=== PATIENT | female | born 1960 | race Caucasian/White ===

== ENCOUNTER 2023-10-12 08:49 | Day surgery (SDC) | payer MEDICAID, OTHER ==
[2023-10-09 12:49] LABS: Basophils # (auto) 0.1 10 ^3/uL (0-0.2); Eosinophils # (auto) 0.2 10 ^3/uL (0-0.8); Eosinophils % (auto) 2.7 % (0.0-7.0); Hemoglobin 13.3 g/dL (12.2-16.2); Lymphocytes # (auto) 3.1 10 ^3/uL (0.4-5.4); Mean Corpuscular Hemoglobin 27.9 pg (28.0-32.0); Mean Corpuscular Hgb Conc. 32.4 g/dL (32.0-36.0); Monocytes # (auto) 0.8 10 ^3/uL (0-1.3); Monocytes % (auto) 8.3 % (0.0-12.0); Neutrophils # (auto) 4.9 10 ^3/uL (1.6-8.6); Red Blood Cells 4.76 10^6/uL (4.0-5.20); Red Cell Distribution Width 14.1 % (11.8-14.3); White Blood Cell 9.1 10^3/uL (4.4-10.8)
[2023-10-09 12:59] LABS: Chloride 108 mmol/L (98-107); Potassium 4.3 mmol/L (3.5-5.1); Sodium 140 mmol/L (136-145)
[2023-10-09 13:00] LABS: Anion Gap 2 (5-15); Calcium 9.2 mg/dL (8.5-10.1); Carbon Dioxide 30 mmol/L (20-30)
[2023-10-09 13:05] LABS: BUN/Creatinine Ratio 14.3 (10.0-20.0); Blood Urea Nitrogen 10 mg/dL (9-23); Glucose 125 mg/dL (74-106); INR 0.99 (0.9-1.15); Partial Thromboplastin Time 31.4 SEC (24.5-34.5); Prothrombin Time 10.4 sec (9.3-11.8)
[~2023-10-12] VITALS: Ht 149.9 cm; Wt 72.6 kg
[~2023-10-12 08:49] MED LIST: IODIXANOL 320MG/ML 100ML BTL IV ONE; IOHEXOL 350 MG/ML 100ML IJ ONE; LIDOCAINE 2%HCL (LOCAL ANESTH.) INJ 20ML MDV ONE
[2023-10-12] MEDS ORDERED: ATOR20TA PO (09:40)
[2023-10-12] MEDS ORDERED: LISI-275 PO (09:40)
[2023-10-12] MEDS ORDERED: PREG100C PO (09:40)
[2023-10-12] MEDS ORDERED: ALBU0.084 NEB (09:40)
[2023-10-12] MEDS ORDERED: SEMA2INJ3 SC (09:40)
[2023-10-12] MEDS ORDERED: METF-371 PO (09:40)
[2023-10-12] MEDS ORDERED: ALBU108A5 IN (09:40)
[2023-10-12] MEDS ORDERED: ASPI-543 PO (09:40)
[2023-10-12] MEDS ORDERED: GLIP5TAB12 PO (09:40)
[2023-10-12] MEDS ORDERED: HYDR-4069 PO (09:40)
[2023-10-12] MEDS ORDERED: ANGIOMAX 250 MG VIAL IV ONE (09:50)
[2023-10-12] MEDS ORDERED: fentaNYL CITRATE 100 MCG/2 ML VL ONE (09:51)
[2023-10-12] MEDS ORDERED: SODIUM CHL 0.9% 0 ML ONE (09:51)
[2023-10-12] MEDS ORDERED: VERAPAMIL 2.5MG/ML INJ 2ML VIAL IV ONE (09:51)
[2023-10-12] MEDS ORDERED: MIDAZOLAM HCL 2MG/2ML 2ml VIAL (1mg/ml) ONE (09:51)
[2023-10-12] MEDS ORDERED: HEPARIN SODIUM (PORCINE) 5000 UNITS/ML 1ML VIAL ONE (09:51)
[2023-10-12] MEDS ORDERED: [UNRECOGNIZED DRUG - CODE] XX (10:22)
== END 2023-10-12 13:05 | disposition home or self-care (01) ==
LOC: CATH 08:49
PROVIDERS: ATTEND Internal Medicine
DX: R94.39 Abnormal result of other cardiovascular function study (principal); I25.118 Atherosclerotic heart disease of native coronary artery with other forms of angina pectoris; I77.819 Aortic ectasia, unspecified site; I10 Essential (primary) hypertension; E78.00 Pure hypercholesterolemia, unspecified; J45.909 Unspecified asthma, uncomplicated; Z79.899 Other long term (current) drug therapy; Z90.49 Acquired absence of other specified parts of digestive tract; Z86.73 Personal history of transient ischemic attack (TIA), and cerebral infarction without residual deficits
CPT/HCPCS: 36415; 80048; 85025; 85610; 85730; 93458; C1769; C1894; J1644; J2250; J3010; Q9967; 99152

== ENCOUNTER 2024-12-20 08:21 | Emergency (ER) | payer MEDICAID, OTHER ==
[~2024-12-20] VITALS: Ht 144.8 cm; Wt 73.3 kg
[~2024-12-20 08:21] MED LIST changes: +ALBU0.084 NEB; +ALBU108A5 IN; +ASPI-543 PO; +ATOR20TA PO; +GLIP5TAB21 PO; +HYDR-4069 PO; -IODIXANOL 320MG/ML 100ML BTL IV ONE; -IOHEXOL 350 MG/ML 100ML IJ ONE; -LIDOCAINE 2%HCL (LOCAL ANESTH.) INJ 20ML MDV ONE; +LISI-275 PO; +METF-371 PO; +PREG100C PO; +SEMA2INJ3 SC; +[UNRECOGNIZED DRUG - CODE] XX
[2024-12-20 08:29] VITALS: BP 164/80; PULSE 97; RESP 18; TEMP 98.1; O2SAT 96
[2024-12-20 09:30] LABS: Basophils # (auto) 0.1 10 ^3/uL (0-0.2); Basophils % (auto) 0.5 % (0.0-2.0); Eosinophils # (auto) 0 10 ^3/uL (0-0.8); Hematocrit 40.6 % (36.0-46.0); Hemoglobin 13.6 g/dL (12.2-16.2); Lymphocytes % (auto) 9.4 % (10.0-50.0); Mean Corpuscular Hemoglobin 29.4 pg (28.0-32.0); Mean Corpuscular Hgb Conc. 33.5 g/dL (32.0-36.0); Monocytes # (auto) 0.1 10 ^3/uL (0-1.3); Monocytes % (auto) 1.2 % (0.0-12.0); Neutrophils # (auto) 9.5 10 ^3/uL (1.6-8.6); Neutrophils % (auto) 88.9 % (37.0-80.0); Platelet Count (auto) 231 10^3/uL (140-450); Red Blood Cells 4.62 10^6/uL (4.0-5.20); Red Cell Distribution Width 14.5 % (11.8-14.3); White Blood Cell 10.7 10^3/uL (4.4-10.8)
--- NOTE | 2024-12-20 09:37 | DVH ---
EXAM: XY CHEST PORTABLE Indication: sob Technique: Single frontal view of the chest was obtained Comparison: None FINDINGS: Lines and Tubes: None Lungs: No focal consolidation. Pleura: No effusion. No pneumothorax. Cardiomediastinal contours: Unremarkable Bones: No acute osseous abnormality. IMPRESSION: No acute cardiopulmonary disease.
--- NOTE | 2024-12-20 09:39 | ED.PDOC ---
SOB-HPI HPI Comments 64 year old female brought in by daughter presents to the ED with chief complaint of SOB and chest pain. Patient reports that she has been experiencing SOB with associated cough, chest pain, headache, nasal congestion, and body aches for the past few days. Daughter relays that the patient was taken to [place] yesterday, however, she signed out AMA due to waiting about 15 hours for treatment. Daughter states patient had a chest XR performed at [place] indicating fluid is present in her lungs. Patient denies any dizziness, fever, chills, N/V, abdominal pain, or hemoptysis. Chief Complaint: Shortness of Breath Time Seen by MD: 09:35 Primary Care Provider: UNK Reviewed notes: Nurses Notes, Medications, Allergies Information Source: Patient, Relative (Daughter) Mode of Arrival: Ambulatory Severity: Moderate Timing: Days Duration: Since onset Context: At Rest PE Risk Factors: None History of: Asthma Prehospital treatment: None Modifying Factors: Nothing Associated Signs and Symptoms: Cough, Nasal Congestion, Chest Pain Quality: Sharp Radiation: No Radiation Location: Substernal If cough with SOB: Non-Productive Past Medical History PAST MEDICAL HISTORY: Asthma Surgical History: Denies all surgeries MANAGER INTERN History: No Pertinent MANAGER INTERN History Family History Family History: Unknown Social History Smoker: Cigarettes Alcohol: Denies ETOH Use Drugs: Denies Drug Use Lives In: Home Constitutional: reports: others (Body aches); denies: chills, diaphoresis, fatigue, fever, malaise, sweats, weakness EENTM: reports: nose congestion; denies: blurred vision, double vision, ear bleeding, ear discharge, ear drainage, ear pain, ear ringing, eye pain, eye redness, hearing loss, mouth pain, mouth swelling, nasal discharge, nose bleeding, nose pain, photophobia, tearing, throat pain, throat swelling, voice changes, others Respiratory: reports: cough, shortness of breath; denies: hemoptysis, orthopnea, SOB at rest, SOB with excertion, stridor, wheezing, others Cardiovascular: reports: chest pain; denies: dizzy spells, diaphoresis, Dyspnea on exertion, edema, irregular heart beat, left arm pain, lightheadedness, palpitations, PND, syncope, others Gastrointestinal: denies: abdomen distended, abdominal pain, blood streaked bowels, constipated, diarrhea, dysphagia, difficulty swallowing, hematemesis, melena, nausea, poor appetite, poor fluid intake, rectal bleeding, rectal pain, vomiting, others Genitourinary: denies: abnormal vagina bleeding, burning, dyspareunia, dysuria, flank pain, frequency, hematuria, incontinence, pain, , vagina discharge, urgency, others Neurological: reports: headache; denies: dizziness, fainting, left sided numbness, left sided weakness, numbness, paresthesia, pre-existing deficit, right sided numbness, right sided weakness, seizure, speech problems, tingling, tremors, weakness, others Musculoskeletal: denies: back pain, gout, joint pain, joint swelling, muscle pain, muscle stiffness, neck pain, others Integumetry: denies: bruises, change in color, change in hair/nails, dryness, laceration, lesions, lumps, rash, wounds, others Allergic/Immunocompromised: denies: Difficulty Healing, Frequent Infections, Hives, Itching, others Hematologic/Lymphatic: denies: anemia, blood clots, easy bleeding, easy bruising, swollen glands, others Endocrine: denies: excessive hunger, excessive sweating, excessive thirst, excessive urination, flushing, intolerance to cold, intolerance to heat, unexplained weight gain, unexplained weight loss, others Psychiatric: denies: anxiety, bipolar disorder, depression, hopeless, panic disorder, schizophrenia, sleepless, suicidal, others All Other Systems: Reviewed and Negative Physical Exam General Appearance: Moderate Distress, Normal HEENT: Normal ENT Inspection, PERRL/EOMI Neck: Full Range of Motion, Non-Tender, Normal, Normal Inspection Respiratory: Chest Non-Tender, No Accessory Muscle Use, No Respiratory Distress, Wheezing Cardiovascular: No Edema, No JVD, No Murmur, No Gallop, Normal Peripheral Pulses, Regular Rate/Rhythm Breast Exam: Deferred Gastrointestinal: No Organomegaly, Non Tender, No Pulsatile Mass, Normal Bowel Sounds, Soft Genitalia: Deferred Pelvic: Deferred Rectal: Deferred Extremities: No calf tenderness, Normal capillary refill, Normal inspection, Normal range of motion, Non-tender, No pedal edema Musculoskeletal : Apperance: Normal Neurologic: Alert, fractionation supervisor II-XII nml as Tested, No Motor Deficits, Normal Affect, Normal Mood, No Sensory Deficits Cerebellar Function: Normal Reflexes: Normal Skin: Dry, Normal Color, Warm Peripheral Pulses: 3+ Radial (R), 3+ Radial (L) Lymphatic: No Adenopathy Was a procedure done? Was a procedure done?: No Differential Dx Differential Diagnosis: Anxiety, Asthma, Bronchitis, CHF, COPD, Pneumonia X-Ray, Labs, Meds, VS Vital Signs Date Time Temp Pulse Resp B/P (MAP) Pulse Ox O2 Delivery O2 Flow Rate FiO2 12/20/24 08:29 98.1 97 18 164/80 (108) 96 98.1 12/20/24 08:29 98.1 97 18 164/80 (108) 96 98.1 12/20/24 08:29 97 18 96 Room Air* 0 21 Lab Test 12/20/24 09:18 Range/Units White Blood Count 10.7 4.4-10.8 10^3/uL Red Blood Count 4.62 4.0-5.20 10^6/uL Hemoglobin 13.6 12.2-16.2 g/dL Hematocrit 40.6 36.0-46.0 % Mean Corpuscular Volume 88.0 80.0-100.0 fL Mean Corpuscular Hemoglobin 29.4 28.0-32.0 pg Mean Corpuscular Hemoglobin Concent 33.5 32.0-36.0 g/dL Red Cell Distribution Width 14.5 H 11.8-14.3 % Platelet Count 231 140-450 10^3/uL Mean Platelet Volume 8.0 6.9-10.8 fL Neutrophils (%) (Auto) 88.9 H 37.0-80.0 % Lymphocytes (%) (Auto) 9.4 L 10.0-50.0 % Monocytes (%) (Auto) 1.2 0.0-12.0 % Eosinophils (%) (Auto) 0.0 0.0-7.0 % Basophils (%) (Auto) 0.5 0.0-2.0 % Neutrophils # (Auto) 9.5 H 1.6-8.6 10 ^3/uL Lymphocytes # (Auto) 1.0 0.4-5.4 10 ^3/uL Monocytes # (Auto) 0.1 0-1.3 10 ^3/uL Eosinophils # (Auto) 0 0-0.8 10 ^3/uL Basophils # (Auto) 0.1 0-0.2 10 ^3/uL Nucleated Red Blood Cells 0.0 % B-Type Natriuretic Peptide 205.82 0-100 pg/mL Chest XR: FINDINGS: Lines and Tubes: None Lungs: No focal consolidation. Pleura: No effusion. No pneumothorax. Cardiomediastinal contours: Unremarkable Bones: No acute osseous abnormality. IMPRESSION: No acute cardiopulmonary disease. Patient alert. Complaining of shortness a breath. Chest x-ray reviewed does not show any acute process. Vitals stable. Chest x-ray lagging behind. BNP elevated. Possible pneumonitis. Possible pneumonia. WBC within normal limits. Cardiology consultation for full workup. Echocardiogram. Was given Lasix. Was given Rocephin. Was given azithromycin. Counseled patient on effects of smoking cigarettes for 15 minutes. Reviewed her history. Explained to the family. Continue cardiac monitoring. Time of 1ST Reevaluation: 10:35 Reevaluation 1ST: Unchanged Patient Education/Counseling: Diagnosis, Treatment Family Education/Counseling: No Family Present Additional Information Previous visit documents reviewed: 11/05/15 for neck pain The following tests were ordered, and results were reviewed by me: UA, BNP, CBC, Chest XR Additional Information was gathered from interviewing the following independent historians: Daughter I reviewed and agreed with the following test results read by other providers: Chest XR I discussed treatment and results with medical personnel and: Patient and daughter. Departure 1 Departure Time of Disposition: 11:07 Impression: Primary Impression: Pneumonitis Disposition: ADMITTED INPATIENT Admit to: Med Surg Condition: Guarded Critical Care Note Critical Care Time?: No Stability Stability form required: No Heart Score Heart Score: Heart Score Response (Comments) Value History N/A 0 EKG N/A 0 Age N/A 0 Risk Factors N/A 0 Troponin N/A 0 Total 0 I personally scribed for ERNESTINE BENAVIDEZ MD ([email or web address]) on 12/20/24 at 09:39. Electronically submitted by Joss Coronel ([email or web address]). I personally scribed for ERNESTINE BENAVIDEZ MD ([email or web address]) on 12/20/24 at 09:50. Electronically submitted by Joss Coronel ([email or web address]). ERNESTINE BENAVIDEZ MD Dec 20, 2024 09:39
[2024-12-20] MEDS ORDERED: AZITHROMYCIN 500MG/ 250ML 250 ML IV ONE (11:15)
[2024-12-20] MEDS ORDERED: cefTRIAXone 1GM/50ML D5W 50 ML IV ONE (11:15)
[2024-12-20 15:57] LABS: Alanine Aminotransferase 17 U/L (7-40); Alkaline Phosphatase 91 U/L (46-116); Anion Gap 5 (5-15); Aspartate Aminotransferase 19 U/L (13-40); BUN/Creatinine Ratio 21.9 (10.0-20.0); Blood Urea Nitrogen 16 mg/dL (9-23); Calcium 9.5 mg/dL (8.7-10.4); Carbon Dioxide 26 mmol/L (20-31); Potassium 4.5 mmol/L (3.5-5.1); Sodium 138 mmol/L (136-145); Total Protein 7.6 g/dL (5.7-8.2)
[2024-12-20 16:06] LABS: Albumin 4.9 g/dL (3.2-4.8); Bilirubin, Total 0.2 mg/dL (0.2-1.0); Chloride 107 mmol/L (98-107); Glucose 203 mg/dL (74-106)
[2024-12-21] MEDS ORDERED: HYDR-4072 PO (17:08)
[2024-12-21] MEDS ORDERED: PREG150C63 PO (17:08)
== END 2024-12-20 15:51 | disposition left against medical advice (07) ==
LOC: ER 08:21
DX: J98.4 Other disorders of lung (principal); F17.210 Nicotine dependence, cigarettes, uncomplicated; R51.9 Headache, unspecified; J45.909 Unspecified asthma, uncomplicated; R07.89 Other chest pain
CPT/HCPCS: 36415; 71045; 80053; 83880; 85025

== ENCOUNTER 2024-12-21 09:34 | Inpatient (IN) | payer MEDICAID ==
[~2024-12-21] VITALS: Ht 144.8 cm; Wt 73.7 kg
--- NOTE | 2024-12-21 10:10 | ED.PDOC ---
History of Present Illness HPI Comments 64F presents to the ER w/ prior Hx of Asthma which may be associated to the c/c of SOB. Pt reports that she has been having Cough, Wheezing, Runny Nose, CP and SOB for the past 3 weeks and went to [facility] yesterday and informed the pt that she has "liquid in the lungs" and that she is going to have to "stay in the hospital but be sitting because there are no more room in the ER" and since the pt didnt want to be sitting, she decided to leave AMA. SHx of . Social hx of tobacco use, but denies alcohol and substance use. Denies chills, fever, N/V/D, or no other associated symptom's, modifiers, recent injuries or sick contacts at this time. Chief Complaint: Shortness of Breath Time Seen by MD: 09:50 Primary Care Provider: UNK Reviewed Notes: Nurses Notes, Medications, Allergies Allergies: Coded Allergies: NO KNOWN ALLERGIES (Unverified , 11/05/15) Home Meds Reported Medications Budesonide (Budesonide Micronized) 1 Pow Pow, 1 POW XX DAILY for asthma, POW 10/12/23 Aspirin (Aspir-Low) 81 Mg Tab, 81 MG PO DAILY for cardiac 10/12/23 Metformin Hydrochloride (Metformin Hcl) 850 Mg Tab, 1 TAB PO BID for dm 10/12/23 Glipizide (Glipizide) 5 Mg Tab, 5 MG PO DAILY for dm 10/12/23 Albuterol Sulfate (Albuterol Sulfate) 0.083 % Neb, 1 VIAL NEB Q4HPRN PRN for SHORTNESS OF BREATH, VIAL 10/12/23 Albuterol Sulfate (Albuterol Sulfate Hfa) 108 Mcg/Act Aer, 108 MCG IN PRN for SHORTNESS OF BREATH, AER 10/12/23 Pregabalin (Lyrica) 100 Mg Cap, 1 CAP PO BID for neropathy 10/12/23 Semaglutide (Ozempic) 2 Mg/3 Ml Inj, 2 MG SC weekly for dm, INJ 10/12/23 Atorvastatin Calcium (Lipitor) 20 Mg Tab, 1 TAB PO DAILY for cholesterol 10/12/23 Lisinopril (Lisinopril) 5 Mg Tab, 5 MG PO DAILY for htn 10/12/23 Hydrocodone-Acetaminophen (Hydrocodone/Acetaminophen 7.5-325 mg) 1 Tab Tab, 1 TAB PO PRN for PAIN SCALE 1 THRU 6, TAB 10/12/23 Information Source: Patient Mode of Arrival: Ambulatory Severity: Moderate Timing: Weeks Duration: Since onset Prehospital treatment: None Past Medical History PAST MEDICAL HISTORY: Asthma Surgical History: CAR CLEANER History: No Pertinent CAR CLEANER History Family History Family History: Reviewed,noncontributory to illness, Unknown Social History Smoker: Cigarettes, Less Than 1 Pack/Day Alcohol: Denies ETOH Use Drugs: Denies Drug Use Lives In: Home Constitutional: denies: chills, diaphoresis, fatigue, fever, malaise, sweats, weakness, others EENTM: denies: blurred vision, double vision, ear bleeding, ear discharge, ear drainage, ear pain, ear ringing, eye pain, eye redness, hearing loss, mouth pain, mouth swelling, nasal discharge, nose bleeding, nose congestion, nose pain, photophobia, tearing, throat pain, throat swelling, voice changes, others Respiratory: reports: cough, shortness of breath, wheezing; denies: hemoptysis, orthopnea, SOB at rest, SOB with excertion, stridor, others Cardiovascular: reports: chest pain; denies: dizzy spells, diaphoresis, Dyspnea on exertion, edema, irregular heart beat, left arm pain, lightheadedness, palpitations, PND, syncope, others Gastrointestinal: denies: abdomen distended, abdominal pain, blood streaked bowels, constipated, diarrhea, dysphagia, difficulty swallowing, hematemesis, melena, nausea, poor appetite, poor fluid intake, rectal bleeding, rectal pain, vomiting, others Genitourinary: denies: abnormal vagina bleeding, burning, dyspareunia, dysuria, flank pain, frequency, hematuria, incontinence, pain, , vagina discharge, urgency, others Neurological: denies: dizziness, fainting, headache, left sided numbness, left sided weakness, numbness, paresthesia, pre-existing deficit, right sided numbness, right sided weakness, seizure, speech problems, tingling, tremors, weakness, others Musculoskeletal: denies: back pain, gout, joint pain, joint swelling, muscle pain, muscle stiffness, neck pain, others Integumetry: denies: bruises, change in color, change in hair/nails, dryness, laceration, lesions, lumps, rash, wounds, others Allergic/Immunocompromised: denies: Difficulty Healing, Frequent Infections, Hives, Itching, others Hematologic/Lymphatic: denies: anemia, blood clots, easy bleeding, easy bruising, swollen glands, others Endocrine: denies: excessive hunger, excessive sweating, excessive thirst, excessive urination, flushing, intolerance to cold, intolerance to heat, unexplained weight gain, unexplained weight loss, others Psychiatric: denies: anxiety, bipolar disorder, depression, hopeless, panic disorder, schizophrenia, sleepless, suicidal, others All Other Systems: Reviewed and Negative Physical Exam General Appearance: Moderate Distress, Normal HEENT: Normal ENT Inspection, Pharynx Normal, TMs Normal Neck: Full Range of Motion, Non-Tender, Normal, Normal Inspection Respiratory: Chest Non-Tender, No Accessory Muscle Use, Other (Coarse breath sounds) Cardiovascular: No Edema, No JVD, No Murmur, No Gallop, Normal Peripheral Pulses, Regular Rate/Rhythm Breast Exam: Deferred Gastrointestinal: No Organomegaly, Non Tender, No Pulsatile Mass, Normal Bowel Sounds, Soft Genitalia: Deferred Pelvic: Deferred Rectal: Deferred Extremities: No calf tenderness, Normal capillary refill, Normal inspection, Normal range of motion, Non-tender, No pedal edema Musculoskeletal : Apperance: Normal Neurologic: Alert, roll table operator II-XII nml as Tested, No Motor Deficits, Normal Affect, Normal Mood, No Sensory Deficits Cerebellar Function: NOT DONE Reflexes: NOT DONE Skin: Dry, Normal Color, Warm Peripheral Pulses: 3+ Radial (R), 3+ Radial (L) Lymphatic: No Adenopathy Was a procedure done? Was a procedure done?: No Differential Dx Considerations may include: Pneumonitis Electrolyte imbalance X-Ray, Labs, Meds, VS Vital Signs Date Time Temp Pulse Resp B/P (MAP) Pulse Ox O2 Delivery O2 Flow Rate FiO2 12/21/24 10:27 71 20 94 Room Air* 0 21 12/21/24 10:27 98.0 71 20 138/40 (72) 94 98.0 12/21/24 09:49 98.5 78 19 127/80 (96) 97 98.5 12/21/24 09:49 19 97 Room Air* 0 21 Lab Test 12/21/24 10:05 Range/Units White Blood Count 10.9 H 4.4-10.8 10^3/uL Red Blood Count 4.25 4.0-5.20 10^6/uL Hemoglobin 12.2 12.2-16.2 g/dL Hematocrit 37.5 36.0-46.0 % Mean Corpuscular Volume 88.2 80.0-100.0 fL Mean Corpuscular Hemoglobin 28.7 28.0-32.0 pg Mean Corpuscular Hemoglobin Concent 32.6 32.0-36.0 g/dL Red Cell Distribution Width 14.6 H 11.8-14.3 % Platelet Count 220 140-450 10^3/uL Mean Platelet Volume 8.2 6.9-10.8 fL Neutrophils (%) (Auto) 60.8 37.0-80.0 % Lymphocytes (%) (Auto) 31.4 10.0-50.0 % Monocytes (%) (Auto) 5.6 0.0-12.0 % Eosinophils (%) (Auto) 1.1 0.0-7.0 % Basophils (%) (Auto) 1.1 0.0-2.0 % Neutrophils # (Auto) 6.6 1.6-8.6 10 ^3/uL Lymphocytes # (Auto) 3.4 0.4-5.4 10 ^3/uL Monocytes # (Auto) 0.6 0-1.3 10 ^3/uL Eosinophils # (Auto) 0.1 0-0.8 10 ^3/uL Basophils # (Auto) 0.1 0-0.2 10 ^3/uL Nucleated Red Blood Cells 0.2 % Sodium Level 140 136-145 mmol/L Potassium Level 4.4 3.5-5.1 mmol/L Chloride Level 107 98-107 mmol/L Carbon Dioxide Level 29 20-31 mmol/L Anion Gap 4 L 5-15 Blood Urea Nitrogen 15 9-23 mg/dL Creatinine 0.84 0.550-1.02 mg/dL Glomerular Filtration Rate Calc 78 >90 mL/min BUN/Creatinine Ratio 17.9 10.0-20.0 Serum Glucose 158 H 74-106 mg/dL Calcium Level 9.4 8.7-10.4 mg/dL Patient alert. Complaining cough. States that she has been having shortness a breath. Stable. Answering questions. Blood sugar elevated. On deep inspiration she does have cough. Inflammation of the upper airway. Pneumonitis. Was given steroid. Was given azithromycin. Reviewed her history Explained to the patient. Continue cardiac monitoring. Time of 1ST Reevaluation: 10:20 Reevaluation 1ST: Unchanged Patient Education/Counseling: Diagnosis, Treatment, Prognosis Family Education/Counseling: No Family Present Departure 1 Departure Time of Disposition: 11:18 Impression: Primary Impression: Pneumonitis Additional Impressions: Cough Qualified Codes: R05.1 - Acute cough Uncontrolled diabetes mellitus Qualified Codes: E13.65 - Other specified diabetes mellitus with hyperglycemia Disposition: ADMITTED INPATIENT Admit to: Med Surg Condition: Guarded Critical Care Note Critical Care Time?: No Stability Stability form required: No Heart Score Heart Score: Heart Score Response (Comments) Value History Slightly Suspicious 0 EKG Normal 0 Age 45-64 1 Risk Factors 1 or 2 risk factors 1 Troponin Normal limit 0 Total 2 I personally scribed for ERNESTINE BENAVIDEZ MD ([email or web address]) on 12/21/24 at 10:10. Electronically submitted by Riley Das ([email or web address]). ERNESTINE BENAVIDEZ MD Dec 21, 2024 10:10
[2024-12-21 10:16] LABS: Basophils # (auto) 0.1 10 ^3/uL (0-0.2); Basophils % (auto) 1.1 % (0.0-2.0); Eosinophils # (auto) 0.1 10 ^3/uL (0-0.8); Eosinophils % (auto) 1.1 % (0.0-7.0); Hematocrit 37.5 % (36.0-46.0); Hemoglobin 12.2 g/dL (12.2-16.2); Lymphocytes # (auto) 3.4 10 ^3/uL (0.4-5.4); Lymphocytes % (auto) 31.4 % (10.0-50.0); Mean Corpuscular Hemoglobin 28.7 pg (28.0-32.0); Mean Corpuscular Hgb Conc. 32.6 g/dL (32.0-36.0); Mean Corpuscular Volume 88.2 fL (80.0-100.0); Monocytes # (auto) 0.6 10 ^3/uL (0-1.3); Monocytes % (auto) 5.6 % (0.0-12.0); Neutrophils # (auto) 6.6 10 ^3/uL (1.6-8.6); Neutrophils % (auto) 60.8 % (37.0-80.0); Nucleated Red Blood Cells % 0.2 %; Platelet Count (auto) 220 10^3/uL (140-450); Red Blood Cells 4.25 10^6/uL (4.0-5.20); Red Cell Distribution Width 14.6 % (11.8-14.3); White Blood Cell 10.9 10^3/uL (4.4-10.8)
[2024-12-21 10:27] VITALS: PULSE 71; RESP 20; O2SAT 94
[2024-12-21 10:40] LABS: Potassium 4.4 mmol/L (3.5-5.1); Sodium 140 mmol/L (136-145)
[2024-12-21 10:41] LABS: Anion Gap 4 (5-15); Calcium 9.4 mg/dL (8.7-10.4); Carbon Dioxide 29 mmol/L (20-31); Chloride 107 mmol/L (98-107)
[2024-12-21 10:46] LABS: BUN/Creatinine Ratio 17.9 (10.0-20.0); Blood Urea Nitrogen 15 mg/dL (9-23)
[2024-12-21 10:47] LABS: Glucose 158 mg/dL (74-106)
[2024-12-21 12:54] LABS: Urine Bacteria MOD /hpf (None Seen); Urine Blood Negative /uL (Negative); Urine Clarity Clear (Clear); Urine Color Light-Yellow (Yellow); Urine Protein, UAD Negative (Negative); Urine Squamous Epithelial Cell FEW /hpf (<5); Urine Urobilinogen Normal (Negative); Urine WBC 1 /HPF (0-5)
--- NOTE | 2024-12-21 14:15 | DVH ---
CHEST RADIOGRAPH Indication: sob Technique: Single frontal view of the chest was obtained COMPARISON: XY CHEST PORTABLE on DOS: 12/20/24 FINDINGS: Lines and Tubes: None Lungs: Increased interstitial prominence Pleura: No effusion. No pneumothorax. Cardiomediastinal contours: Unremarkable Bones: Unremarkable IMPRESSION: Pulmonary vascular congestion or viral pneumonia
[2024-12-21] MEDS ORDERED: DEXTROSE (50%) 50ML SYRG IV PRN (16:45)
[2024-12-21] MEDS ORDERED: ONDANSETRON HCL 4 MG/2 ML VIAL IV PRN (16:45)
[2024-12-21] MEDS ORDERED: DOCUSATE SOD 100 MG CAP PO PRN (16:45)
[2024-12-21] MEDS ORDERED: ACETAMINOPHEN 325 MG TAB PO PRN (16:45)
[2024-12-21] MEDS ORDERED: PREG150C63 PO (17:08)
[2024-12-21] MEDS ORDERED: HYDR-4072 PO (17:08)
--- NOTE | 2024-12-21 17:09 | DVHHP2 ---
History of Present Illness Reason for Visit: Shortness of breath History of Present Illness Jaclyn Manning is a 64-year-old female with past medical history of diabetes, arthritis, and asthma, who came in for shortness of breath. Patient states she has had shortness of breath with associated cough, weakness, and dizzy for 3 weeks. She was seen here yesterday, but had to leave due to needing to lay down from feeling so weak and dizzy. She came back this morning because her symptoms are not improving. Pulmonary: Asthma Musculoskeletal: Osteoarthritis Endocrine: Diabetes Smoke: 1 pack per day ALCOHOL: none Drugs: None Lives: with Family Domestic Violence: Neg Review of Systems Constitutional: No: Fever, Chills, Sweats, Weakness, Malaise, Other Eyes: No: Pain, Vision change, Conjunctivae inflammation, Eyelid inflammation, Other, Redness ENT: No: Ear pain, Ear discharge, Nose pain, Nose discharge, Nose congestion, Mouth pain, Mouth swelling, Throat pain, Throat swelling, Other Respiratory: Cough, Shortness of breath, SOB with excertion, Wheezing, Sputum; No: Dry, Hemoptysis, Pleuritic Pain, Wheezing, Other Cardiovascular: No: Chest Pain, Palpitations, Orthopnea, Paroxysmal Noc. Dyspnea, Edema, Lt Headedness, Other Gastrointestinal: No: Nausea, Vomiting, Abdominal Pain, Diarrhea, Constipation, Melena, Hematochezia, Other Genitourinary: No Dysuria, No Frequency, No Incontinence, No Hematuria, No Retention, No Other Musculoskeletal: No: other, neck pain, shoulder pain, arm pain, back pain, hand pain, leg pain, foot pain Skin: No: Rash, Lesions, Jaundice, Bruising, Other Neurological: No: Weakness, Numbness, Incoordination, Change in speech, Confusion, Seizures, Other Allergies: Coded Allergies: NO KNOWN ALLERGIES (Unverified , 11/05/15) Exam Vital Signs Vital Signs Date Time Temp Pulse Resp B/P (MAP) Pulse Ox O2 Delivery O2 Flow Rate FiO2 12/21/24 14:26 98.4 88 20 127/53 (77) 94 98.4 12/21/24 10:27 Room Air* 0 21 General Appearance: Alert, Oriented X3, Cooperative, mild distress HEENT: Atraumatic, PERRLA Respiratory: Other (Bilateral wheezing) Cardiovascular: Regular rate, Normal S1, Normal S2, No murmurs Abdominal: Normal bowel sounds, Soft, No tenderness Extremities: No clubbing, No cyanosis, No edema, Normal pulses, No tenderness/swelling Skin: No rashes, No breakdown, No significant lesion Neuro: Normal gait, Normal speech, Strength at 5/5 X4 ext, Normal tone Psych/Mental Status: Mental status NL, Mood NL Labs/Xrays Labs Test 12/21/24 10:35 12/21/24 10:05 Range/Units Urine Color Light-yellow Yellow Urine Clarity Clear Clear Urine pH 6.0 5.0-9.0 Urine Specific [place] 1.010 1.001-1.035 Urine Protein Negative Negative Urine Ketones Negative Negative Urine Blood Negative Negative /uL Urine Nitrite Negative Negative Urine Bilirubin Negative Negative Urine Urobilinogen Normal Negative mg/dL Urine Leukocyte Esterase Negative Negative /uL Urine RBC <1 0 - 4 /hpf Urine Microscopic WBC 1 0-5 /HPF Urine Squamous Epithelial Cells Few <5 /hpf Urine Bacteria Mod H None Seen /hpf Urine Glucose Normal Normal mg/dL White Blood Count 10.9 H 4.4-10.8 10^3/uL Red Blood Count 4.25 4.0-5.20 10^6/uL Hemoglobin 12.2 12.2-16.2 g/dL Hematocrit 37.5 36.0-46.0 % Mean Corpuscular Volume 88.2 80.0-100.0 fL Mean Corpuscular Hemoglobin 28.7 28.0-32.0 pg Mean Corpuscular Hemoglobin Concent 32.6 32.0-36.0 g/dL Red Cell Distribution Width 14.6 H 11.8-14.3 % Platelet Count 220 140-450 10^3/uL Mean Platelet Volume 8.2 6.9-10.8 fL Neutrophils (%) (Auto) 60.8 37.0-80.0 % Lymphocytes (%) (Auto) 31.4 10.0-50.0 % Monocytes (%) (Auto) 5.6 0.0-12.0 % Eosinophils (%) (Auto) 1.1 0.0-7.0 % Basophils (%) (Auto) 1.1 0.0-2.0 % Neutrophils # (Auto) 6.6 1.6-8.6 10 ^3/uL Lymphocytes # (Auto) 3.4 0.4-5.4 10 ^3/uL Monocytes # (Auto) 0.6 0-1.3 10 ^3/uL Eosinophils # (Auto) 0.1 0-0.8 10 ^3/uL Basophils # (Auto) 0.1 0-0.2 10 ^3/uL Nucleated Red Blood Cells 0.2 % Sodium Level 140 136-145 mmol/L Potassium Level 4.4 3.5-5.1 mmol/L Chloride Level 107 98-107 mmol/L Carbon Dioxide Level 29 20-31 mmol/L Anion Gap 4 L 5-15 Blood Urea Nitrogen 15 9-23 mg/dL Creatinine 0.84 0.550-1.02 mg/dL Glomerular Filtration Rate Calc 78 >90 mL/min BUN/Creatinine Ratio 17.9 10.0-20.0 Serum Glucose 158 H 74-106 mg/dL Calcium Level 9.4 8.7-10.4 mg/dL CHEST RADIOGRAPH FINDINGS: Lines and Tubes: None Lungs: Increased interstitial prominence Pleura: No effusion. No pneumothorax. Cardiomediastinal contours: Unremarkable Bones: Unremarkable IMPRESSION: Pulmonary vascular congestion or viral pneumonia Assessment/Plan Assessment/Plan Assessment: Pneumonia, Fluid overload, Diabetes, Asthma, Plan: Admit to Med-Surg, IV antibiotics, IV hydration, IV steroids, Breathing treatments, Accu checks Q AC&HS with sliding scale, Home medications reconciled, Plan discussed with: Patient My Orders Orders - EDWIN SERRANO Procedure Category Date Status Time Admit ADMIT 12/21/24 Verified 16:44 Code Status CODE 12/21/24 Verified 16:44 2 Gm Sodium Diet DIET 12/21/24 Verified Dinner Sodium Chloride Lock PHA 12/21/24 Verified (Saline Lock Ns) 22:00 Hydrocodone-Acet PHA 12/21/24 Verified 5/325mg Tab ([place] 16:45 Ondansetron Hcl PHA 12/21/24 Verified (Zofran) 16:45 Docusate Sodium PHA 12/21/24 Verified Capsule (Colace 16:45 Complete Blood Count LAB 12/22/24 Verified 04:00 Comprehensive LAB 12/22/24 Verified Metabolic Panel 04:00 Condition: Serious ERIKA 12/21/24 Verified 16:44 Acetaminophen Tablet PHA 12/21/24 Verified (Tylenol Tablet) 16:45 Oxygen By Nasal RT 12/21/24 Verified Cannula 16:44 Glucose Blood PHA 12/21/24 Verified (Accu-Chek Comfort 17:00 Bedtime Insulin Scale PHA 12/21/24 Verified 22:00 Moderate Insulin Ss PHA 12/21/24 Verified 17:00 Dextrose 50% Syringe PHA 12/21/24 Verified 16:45 Azithromycin 500mg/ PHA 12/22/24 Verified 250ml (Zithromax 50 10:00 Azithromycin 500mg/ PHA 12/21/24 Verified 250ml (Zithromax 50 16:45 Albuterol Medneb PHA 12/21/24 Verified (Ventolin Medneb) 18:00 Ipratropium Medneb PHA 12/21/24 Verified (Atrovent Medneb) 18:00 Ceftriaxone Ivpb PHA 12/22/24 Verified Rocephin 09:00 Ceftriaxone Ivpb PHA 12/21/24 Verified Rocephin 16:45 Date of Service: Dec 21, 2024 Billing Provider: EDWIN SERRANO Common Visit Codes: [id number] INP/OBS CARE (MOD) EDWIN SERRANO Dec 21, 2024 17:09
[2024-12-21] MEDS: ACCU-CHEK COMFORT CURVE STRIP VI SCH (17:27)
[2024-12-21] MEDS: cefTRIAXone 1GM/50ML D5W 50 ML IV ONE (17:59)
[2024-12-21] MEDS: FUROSEMIDE 40 MG/4 ML VIAL IV ONE (18:14)
[2024-12-21] MEDS: ALBUTEROL SULF 2.5 MG/0.5ML(0.5%) NEB SOLN NEB SCH (18:16)
[2024-12-21 18:17] VITALS: PULSE 87; RESP 18; O2SAT 94
[2024-12-21] MEDS: IPRATROPIUM BROM 0.5 MG/2.5ML INH SOL NEB SCH (18:17)
[2024-12-21] MEDS: AZITHROMYCIN 500MG/ 250ML 250 ML IV ONE (18:30)
[2024-12-21] MEDS: InsuLIN REG 1unit/0.01ml Soln (100units/ml) SC SCH ×2 (18:30→21:18)
[2024-12-21 18:32] VITALS: PULSE 73; RESP 18; O2SAT 100
[2024-12-21 19:42] VITALS: BP 115/52; PULSE 87; RESP 18; TEMP 98; O2SAT 94
[2024-12-21 19:57] VITALS: BP 121/71; PULSE 76; RESP 20; TEMP 98.4; O2SAT 95
[2024-12-21] MEDS: SODIUM CHLOR 0.9% PF (SALINE LOCK) 10ML VIAL/SYR IV SCH (21:17)
[2024-12-21] MEDS: PREGABALIN CAPSULE 75 MG CAP PO SCH (21:17)
[2024-12-21] MEDS: methylPREDNISolone SOD SUCC 40 MG/ML VL IV SCH (21:18)
[2024-12-22] VITALS (15 sets, daily range): BP systolic 120–149; BP diastolic 48–59; PULSE 76–94; RESP 16–98; TEMP 98–98.5; O2SAT 91–100
[2024-12-22] MEDS: HYDROcodone-ACET 5/325MG TAB PO PRN (06:13)
--- NOTE | 2024-12-22 07:02 | DVH ---
EXAM: XR Chest, 1 View CLINICAL INDICATION: SOB TECHNIQUE: Frontal view of the chest. COMPARISON: XY CHEST PORTABLE on DOS: 12/21/24, XY CHEST PORTABLE on DOS: 12/20/24 FINDINGS: LUNGS AND PLEURAL SPACES: Unremarkable. No consolidation. No pneumothorax. HEART: Unremarkable. No cardiomegaly. MEDIASTINUM: Unremarkable. Normal mediastinal contour. BONES/JOINTS: Unremarkable. No acute fracture. OTHER FINDINGS: . None. IMPRESSION: No acute cardiopulmonary process.
[2024-12-22 07:11] LABS: Basophils # (auto) 0 10 ^3/uL (0-0.2); Basophils % (auto) 0.4 % (0.0-2.0); Eosinophils # (auto) 0 10 ^3/uL (0-0.8); Hematocrit 40.2 % (36.0-46.0); Hemoglobin 13.3 g/dL (12.2-16.2); Lymphocytes # (auto) 1.1 10 ^3/uL (0.4-5.4); Lymphocytes % (auto) 12.1 % (10.0-50.0); Mean Corpuscular Volume 87.9 fL (80.0-100.0); Monocytes # (auto) 0.1 10 ^3/uL (0-1.3); Monocytes % (auto) 1.5 % (0.0-12.0); Neutrophils # (auto) 8.1 10 ^3/uL (1.6-8.6); Nucleated Red Blood Cells % 0.1 %; Platelet Count (auto) 234 10^3/uL (140-450); Red Blood Cells 4.57 10^6/uL (4.0-5.20); Red Cell Distribution Width 14.4 % (11.8-14.3); White Blood Cell 9.4 10^3/uL (4.4-10.8)
[2024-12-22 07:23] LABS: Alanine Aminotransferase 15 U/L (7-40); Albumin 4.3 g/dL (3.2-4.8); Alkaline Phosphatase 77 U/L (46-116); Anion Gap 4 (5-15); BUN/Creatinine Ratio 21.4 (10.0-20.0); Blood Urea Nitrogen 15 mg/dL (9-23); Calcium 9.3 mg/dL (8.7-10.4); Carbon Dioxide 27 mmol/L (20-31); Potassium 4.2 mmol/L (3.5-5.1); Sodium 141 mmol/L (136-145); Total Protein 6.8 g/dL (5.7-8.2)
[2024-12-22 07:26] LABS: Aspartate Aminotransferase 12 U/L (13-40); Bilirubin, Total 0.3 mg/dL (0.2-1.0); Chloride 110 mmol/L (98-107); Glucose 180 mg/dL (74-106)
[2024-12-22] MEDS: ASPirin-EC 81 mg tab PO SCH (09:29)
[2024-12-22] MEDS: ATORVASTATIN 20 MG TAB PO SCH (09:29)
--- NOTE | 2024-12-22 10:57 | ECG ---
[facility] Test Date: 2024-12-21 Test Time: 10:02:36 Pat Name: DAYSI CLARK Department: ER Room: 0290 B Gender: F President & Founder: PIA : [id number] Requested By: ERNESTINE BENAVIDEZ Order Number: [id number] Reading MD: Jose D Bowers Measurements Intervals [place] Rate: 75 P: 41 WI: 157 QRS: 3 QRSD: 93 T: 109 QT: 398 QTc: 445 Interpretive Statements Sinus rhythm Abnormal R-wave progression, early transition Left ventricular hypertrophy Nonspecific T abnormalities, lateral leads Electronically Signed On 12-24-2024 17:21:15 PDT by Jose D Bowers Please click the below link to view image of tracing.
--- NOTE | 2024-12-22 12:47 | DVHPN2 ---
Subjective The patient is seen and examined at bedside. Had cough a lot today. Patient is tired. Reviewed: Care Plan, H&P, Labs, Medications, Previous Orders, Radiology Changes from previous H/P or p: No Changes Eyes: No Pain, No Vision change, No Conjunctivae inflammation, No Eyelid inflammation, No Other, No Redness ENT: No Ear pain, No Ear discharge, No Nose pain, No Nose discharge, No Nose congestion, No Mouth pain, No Mouth swelling, No Throat pain, No Throat swelling, No Other Cardiovascular: No Chest Pain, No Palpitations, No Orthopnea, No Paroxysmal Noc. Dyspnea, No Edema, No Lt Headedness, No Other Respiratory: Cough; No Dry; Shortness of breath, SOB with excertion, Wheezing; No Hemoptysis, No Pleuritic Pain; Sputum; No Other Gastrointestinal: No Nausea, No Vomiting, No Abdominal Pain, No Diarrhea, No Constipation, No Melena, No Hematochezia, No Other Genitourinary: No Dysuria, No Frequency, No Incontinence, No Hematuria, No Retention, No Other Musculoskeletal: No other, No neck pain, No shoulder pain, No arm pain, No back pain, No hand pain, No leg pain, No foot pain Skin: No Rash, No Lesions, No Jaundice, No Bruising, No Other Objective Vitals Vital Signs Date Time Temp Pulse Resp B/P (MAP) Pulse Ox O2 Delivery O2 Flow Rate FiO2 12/22/24 11:26 76 18 98 12/22/24 11:20 Room Air* 0 21 12/22/24 09:00 98.5 128/56 (80) 98.5 Intake/Output Intake and Output 12/22/24 07:00 Intake Total 100 ml Balance 100 ml Intake Oral 100 ml # Voids 3 General Appearance: Alert, Cooperative, No acute distress HEENT: Atraumatic, PERRLA, EOMI, Mucous membr. moist/pink Neck: Supple Lungs: Clear to auscultation, Normal air movement Cardiovascular: Regular rate, Normal S1, Normal S2, No murmurs, Gallops, Rubs Abdomen: Normal bowel sounds, Soft, No tenderness Neuro: Cranial nerves 3-12 NL Psych/Mental Status: Mental status NL Medications Current Medications Medications Dose Ordered Sig/Sara Route Start Time Stop Time Status Last Admin Dose Admin Sodium Chloride 10 ml Q8HR IV 12/21/24 22:00 12/22/24 06:13 10 ML Acetaminophen/ Hydrocodone Bitart 1 tab Q4HP PRN PO 12/21/24 16:45 12/22/24 06:13 1 TAB Ondansetron HCl 4 mg Q4HP PRN IV 12/21/24 16:45 Docusate Sodium 100 mg BIDPRN PRN PO 12/21/24 16:45 Acetaminophen 650 mg Q6HP PRN PO 12/21/24 16:45 Diagnostic Test (Pha) 1 strip ACHS 12/21/24 17:00 12/22/24 11:08 1 STRIP Insulin Human Regular HS SC 12/21/24 22:00 Insulin Human Regular AC SC 12/21/24 17:00 12/22/24 11:08 3 UNITS Dextrose 50 ml UD PRN IV 12/21/24 16:45 Azithromycin 250 ml @ 125 mls/hr DAILY IV 12/22/24 10:00 Albuterol 2.5 mg Q6HWA NEB 12/21/24 18:00 12/22/24 11:20 2.5 MG Ipratropium [place] 0.5 mg Q6HWA NEB 12/21/24 18:00 12/22/24 11:20 0.5 MG Ceftriaxone Sodium 50 ml @ 100 mls/hr DAILY@09 IV 12/22/24 09:00 Methylprednisolone Sodium Succinate 40 mg BID IV 12/21/24 22:00 12/22/24 09:30 40 MG Aspirin 81 mg DAILY PO 12/22/24 10:00 12/22/24 09:29 81 MG Atorvastatin Calcium 20 mg DAILY PO 12/22/24 10:00 12/22/24 09:29 20 MG Acetaminophen/ Hydrocodone Bitart 1 tab TIDPRN PRN PO 12/21/24 17:15 Pregabalin 150 mg BID PO 12/21/24 22:00 12/22/24 09:30 150 MG Laboratory Results Laboratory Tests 12/22/24 06:04 Chemistry Test 12/22/24 06:04 Albumin 4.3 g/dL (3.2-4.8) Calcium Level 9.3 mg/dL (8.7-10.4) Total Protein 6.8 g/dL (5.7-8.2) LFT Test 12/22/24 06:04 Alanine Aminotransferase (ALT) 15 U/L (7-40) Alkaline Phosphatase 77 U/L (46-116) Aspartate Amino Transferase (AST) 12 U/L (13-40) L Total Bilirubin 0.3 mg/dL (0.2-1.0) Urinalysis Test 12/21/24 10:35 Urine Color Light-yellow (Yellow) Urine Clarity Clear (Clear) Urine pH 6.0 (5.0-9.0) Urine Specific [place] 1.010 (1.001-1.035) Urine Protein Negative (Negative) Urine Ketones Negative (Negative) Urine Blood Negative /uL (Negative) Urine Nitrite Negative (Negative) Urine Bilirubin Negative (Negative) Urine Urobilinogen Normal mg/dL (Negative) Urine Leukocyte Esterase Negative /uL (Negative) Urine RBC <1 /hpf (0 - 4) Urine Microscopic WBC 1 /HPF (0-5) Urine Squamous Epithelial Cells Few /hpf (<5) Urine Bacteria Mod /hpf (None Seen) H Urine Glucose Normal mg/dL (Normal) Labs and/or images reviewed: Labs reviewed by me Assessment/Plan Assessment/Plan Pneumonia, possible secondary to Gram-positive bacteria pneumonia Congestive heart failure with exacerbation Diabetes, type 2 Asthma, exacerbation Plan: Continuing current management. Continuing with IV antibiotic Rocephin and Zithromax. Continuing with Lasix. Continuing with nebulizer. Continuing with sliding scale insulin. This medical document was created using an electronic medical record system with [employer] direct computerized dictation system. Although this document has been carefully reviewed, there may still be some phonetic and typographical errors. These areas are purely typographical due to imperfections of the software programs, and do not reflect any compromise in the patient's medical care. Plan discussed with: Patient Date of Service: Dec 22, 2024 Billing Provider: ZHANE RODRIGUEZ MD Common Visit Codes: [id number] INP/OBS CARE(HIGH) ZHANE RODRIGUEZ MD Dec 22, 2024 12:47
[2024-12-22] MEDS: cefTRIAXone 1GM/50ML D5W 50 ML IV SCH (13:50)
[2024-12-22] MEDS: AZITHROMYCIN 500MG/ 250ML 250 ML IV SCH (17:03)
[2024-12-22] MEDS: HYDROcodone-ACET 10/325MG TAB PO PRN (17:14)
[2024-12-23] VITALS (16 sets, daily range): BP systolic 110–160; BP diastolic 39–58; PULSE 75–96; RESP 16–20; TEMP 97.6–98.2; O2SAT 93–99
--- NOTE | 2024-12-23 11:37 | DVHPN2 ---
Subjective The patient is seen and examined at bedside. The patient feel little bit better today. Reviewed: Care Plan, H&P, Labs, Medications, Previous Orders, Radiology Changes from previous H/P or p: No Changes Eyes: No Pain, No Vision change, No Conjunctivae inflammation, No Eyelid inflammation, No Other, No Redness ENT: No Ear pain, No Ear discharge, No Nose pain, No Nose discharge, No Nose congestion, No Mouth pain, No Mouth swelling, No Throat pain, No Throat swelling, No Other Cardiovascular: No Chest Pain, No Palpitations, No Orthopnea, No Paroxysmal Noc. Dyspnea, No Edema, No Lt Headedness, No Other Respiratory: Cough; No Dry; Shortness of breath, SOB with excertion, Wheezing; No Hemoptysis, No Pleuritic Pain; Sputum; No Other Gastrointestinal: No Nausea, No Vomiting, No Abdominal Pain, No Diarrhea, No Constipation, No Melena, No Hematochezia, No Other Genitourinary: No Dysuria, No Frequency, No Incontinence, No Hematuria, No Retention, No Other Musculoskeletal: No other, No neck pain, No shoulder pain, No arm pain, No back pain, No hand pain, No leg pain, No foot pain Skin: No Rash, No Lesions, No Jaundice, No Bruising, No Other Objective Vitals Vital Signs Date Time Temp Pulse Resp B/P (MAP) Pulse Ox O2 Delivery O2 Flow Rate FiO2 12/23/24 09:00 97.6 85 19 127/53 (77) 94 97.6 12/23/24 06:46 Room Air 0.0 12/23/24 06:46 21 Intake/Output Intake and Output 12/23/24 07:00 Intake Total 3090 ml Balance 3090 ml Intake Oral 3040 ml IV Total 50 ml # Voids 11 # Bowel Movements 4 General Appearance: Alert, Oriented X3, Cooperative, No acute distress HEENT: Atraumatic, PERRLA, EOMI, Mucous membr. moist/pink Neck: Supple Lungs: Clear to auscultation, Normal air movement Cardiovascular: Regular rate, Normal S1, Normal S2, No murmurs, Gallops, Rubs Abdomen: Normal bowel sounds, Soft, No tenderness Neuro: Cranial nerves 3-12 NL Psych/Mental Status: Mental status NL Medications Current Medications Medications Dose Ordered Sig/Sara Route Start Time Stop Time Status Last Admin Dose Admin Sodium Chloride 10 ml Q8HR IV 12/21/24 22:00 12/23/24 05:42 10 ML Acetaminophen/ Hydrocodone Bitart 1 tab Q4HP PRN PO 12/21/24 16:45 12/23/24 00:10 1 TAB Ondansetron HCl 4 mg Q4HP PRN IV 12/21/24 16:45 Docusate Sodium 100 mg BIDPRN PRN PO 12/21/24 16:45 Acetaminophen 650 mg Q6HP PRN PO 12/21/24 16:45 Diagnostic Test (Pha) 1 strip ACHS 12/21/24 17:00 12/23/24 05:42 1 STRIP Insulin Human Regular HS SC 12/21/24 22:00 12/22/24 21:27 4 UNITS Insulin Human Regular AC SC 12/21/24 17:00 12/23/24 05:46 6 UNITS Dextrose 50 ml UD PRN IV 12/21/24 16:45 Azithromycin 250 ml @ 125 mls/hr DAILY IV 12/22/24 10:00 12/22/24 17:03 125 MLS/HR Albuterol 2.5 mg Q6HWA NEB 12/21/24 18:00 12/23/24 06:46 2.5 MG Ipratropium [place] 0.5 mg Q6HWA NEB 12/21/24 18:00 12/23/24 06:46 0.5 MG Ceftriaxone Sodium 50 ml @ 100 mls/hr DAILY@09 IV 12/22/24 09:00 12/23/24 10:52 100 MLS/HR Methylprednisolone Sodium Succinate 40 mg BID IV 12/21/24 22:00 12/23/24 10:52 40 MG Aspirin 81 mg DAILY PO 12/22/24 10:00 12/23/24 10:53 81 MG Atorvastatin Calcium 20 mg DAILY PO 12/22/24 10:00 12/23/24 10:53 20 MG Acetaminophen/ Hydrocodone Bitart 1 tab TIDPRN PRN PO 12/21/24 17:15 12/23/24 10:54 1 TAB Pregabalin 150 mg BID PO 12/21/24 22:00 12/23/24 11:01 150 MG Laboratory Results Laboratory Tests 12/22/24 06:04 Urinalysis Test 12/21/24 10:35 Urine Color Light-yellow (Yellow) Urine Clarity Clear (Clear) Urine pH 6.0 (5.0-9.0) Urine Specific [place] 1.010 (1.001-1.035) Urine Protein Negative (Negative) Urine Ketones Negative (Negative) Urine Blood Negative /uL (Negative) Urine Nitrite Negative (Negative) Urine Bilirubin Negative (Negative) Urine Urobilinogen Normal mg/dL (Negative) Urine Leukocyte Esterase Negative /uL (Negative) Urine RBC <1 /hpf (0 - 4) Urine Microscopic WBC 1 /HPF (0-5) Urine Squamous Epithelial Cells Few /hpf (<5) Urine Bacteria Mod /hpf (None Seen) H Urine Glucose Normal mg/dL (Normal) Microbiology Microbiology Date/Time Source Procedure Growth Status 12/22/24 22:00 Sputum Gram Stain - Final Resulted 12/22/24 22:00 Sputum Respiratory Culture Pending Resulted Labs and/or images reviewed: Labs reviewed by me Assessment/Plan Assessment/Plan Pneumonia, possible secondary to Gram-positive bacteria pneumonia Congestive heart failure with exacerbation Diabetes, type 2 Asthma, exacerbation Plan: Continuing current management. Continuing with IV antibiotic Rocephin and Zithromax. Continuing with Lasix. Continuing with nebulizer. Continuing with sliding scale insulin. This medical document was created using an electronic medical record system with [email or web address] direct computerized dictation system. Although this document has been carefully reviewed, there may still be some phonetic and typographical errors. These areas are purely typographical due to imperfections of the software programs, and do not reflect any compromise in the patient's medical care. Plan discussed with: Patient Date of Service: Dec 23, 2024 Billing Provider: ZHANE RODRIGUEZ MD Common Visit Codes: [id number] INP/OBS CARE(HIGH) ZHANE RODRIGUEZ MD Dec 23, 2024 11:37
[2024-12-24] VITALS (12 sets, daily range): BP systolic 106–152; BP diastolic 40–59; PULSE 60–88; RESP 15–18; TEMP 97.8–98.5; O2SAT 91–100
--- NOTE | 2024-12-24 14:07 | DVHPN2 ---
Subjective The patient is seen and examined at bedside. The patient feel little bit better today. Reviewed: Care Plan, H&P, Labs, Medications, Previous Orders, Radiology Eyes: No Pain, No Vision change, No Conjunctivae inflammation, No Eyelid inflammation, No Other, No Redness ENT: No Ear pain, No Ear discharge, No Nose pain, No Nose discharge, No Nose congestion, No Mouth pain, No Mouth swelling, No Throat pain, No Throat swelling, No Other Cardiovascular: No Chest Pain, No Palpitations, No Orthopnea, No Paroxysmal Noc. Dyspnea, No Edema, No Lt Headedness, No Other Respiratory: Cough; No Dry; Shortness of breath, SOB with excertion, Wheezing; No Hemoptysis, No Pleuritic Pain; Sputum; No Other Gastrointestinal: No Nausea, No Vomiting, No Abdominal Pain, No Diarrhea, No Constipation, No Melena, No Hematochezia, No Other Genitourinary: No Dysuria, No Frequency, No Incontinence, No Hematuria, No Retention, No Other Musculoskeletal: No other, No neck pain, No shoulder pain, No arm pain, No back pain, No hand pain, No leg pain, No foot pain Skin: No Rash, No Lesions, No Jaundice, No Bruising, No Other Objective Vitals Vital Signs Date Time Temp Pulse Resp B/P (MAP) Pulse Ox O2 Delivery O2 Flow Rate FiO2 12/24/24 12:27 98.5 82 15 106/58 (74) 97 98.5 12/24/24 11:45 Room Air* 0 21 Intake/Output Intake and Output 12/24/24 07:00 Intake Total 2400 ml Balance 2400 ml Intake Oral 2100 ml IV Total 300 ml # Voids 13 # Bowel Movements 3 General Appearance: Alert, Oriented X3, Cooperative, No acute distress HEENT: Atraumatic, PERRLA, EOMI, Mucous membr. moist/pink Neck: Supple Lungs: Clear to auscultation, Normal air movement Cardiovascular: Regular rate, Normal S1, Normal S2, No murmurs, Gallops, Rubs Abdomen: Normal bowel sounds, Soft, No tenderness Neuro: Cranial nerves 3-12 NL Psych/Mental Status: Mental status NL Medications Current Medications Medications Dose Ordered Sig/Sara Route Start Time Stop Time Status Last Admin Dose Admin Sodium Chloride 10 ml Q8HR IV 12/21/24 22:00 12/24/24 05:42 10 ML Acetaminophen/ Hydrocodone Bitart 1 tab Q4HP PRN PO 12/21/24 16:45 12/23/24 00:10 1 TAB Ondansetron HCl 4 mg Q4HP PRN IV 12/21/24 16:45 Docusate Sodium 100 mg BIDPRN PRN PO 12/21/24 16:45 Acetaminophen 650 mg Q6HP PRN PO 12/21/24 16:45 Diagnostic Test (Pha) 1 strip ACHS 12/21/24 17:00 12/24/24 11:30 1 STRIP Insulin Human Regular HS SC 12/21/24 22:00 12/23/24 20:56 4 UNITS Insulin Human Regular AC SC 12/21/24 17:00 12/24/24 05:48 3 UNITS Dextrose 50 ml UD PRN IV 12/21/24 16:45 Azithromycin 250 ml @ 125 mls/hr DAILY IV 12/22/24 10:00 12/24/24 08:39 125 MLS/HR Albuterol 2.5 mg Q6HWA NEB 12/21/24 18:00 12/24/24 11:45 2.5 MG Ipratropium [place] 0.5 mg Q6HWA NEB 12/21/24 18:00 12/24/24 11:45 0.5 MG Ceftriaxone Sodium 50 ml @ 100 mls/hr DAILY@09 IV 12/22/24 09:00 12/24/24 08:39 100 MLS/HR Methylprednisolone Sodium Succinate 40 mg BID IV 12/21/24 22:00 12/24/24 08:39 40 MG Aspirin 81 mg DAILY PO 12/22/24 10:00 12/24/24 08:40 81 MG Atorvastatin Calcium 20 mg DAILY PO 12/22/24 10:00 12/24/24 08:40 20 MG Acetaminophen/ Hydrocodone Bitart 1 tab TIDPRN PRN PO 12/21/24 17:15 12/23/24 20:58 1 TAB Pregabalin 150 mg BID PO 12/21/24 22:00 12/24/24 10:32 150 MG Laboratory Results Laboratory Tests 12/22/24 06:04 Urinalysis Test 12/21/24 10:35 Urine Color Light-yellow (Yellow) Urine Clarity Clear (Clear) Urine pH 6.0 (5.0-9.0) Urine Specific [place] 1.010 (1.001-1.035) Urine Protein Negative (Negative) Urine Ketones Negative (Negative) Urine Blood Negative /uL (Negative) Urine Nitrite Negative (Negative) Urine Bilirubin Negative (Negative) Urine Urobilinogen Normal mg/dL (Negative) Urine Leukocyte Esterase Negative /uL (Negative) Urine RBC <1 /hpf (0 - 4) Urine Microscopic WBC 1 /HPF (0-5) Urine Squamous Epithelial Cells Few /hpf (<5) Urine Bacteria Mod /hpf (None Seen) H Urine Glucose Normal mg/dL (Normal) Microbiology Microbiology Date/Time Source Procedure Growth Status 12/22/24 22:00 Sputum Gram Stain - Final Resulted 12/22/24 22:00 Sputum Respiratory Culture - Preliminary Resulted Assessment/Plan Assessment/Plan Pneumonia, possible secondary to Gram-positive bacteria pneumonia Congestive heart failure with exacerbation Diabetes, type 2 Asthma, exacerbation Plan: Continuing current management. Continuing with IV antibiotic Rocephin and Zithromax. Continuing with Lasix. Continuing with nebulizer. Continuing with sliding scale insulin. This medical document was created using an electronic medical record system with [employer] direct computerized dictation system. Although this document has been carefully reviewed, there may still be some phonetic and typographical errors. These areas are purely typographical due to imperfections of the software programs, and do not reflect any compromise in the patient's medical care. ZHANE RODRIGUEZ MD Dec 24, 2024 14:07
--- NOTE | 2024-12-24 15:33 | DVHDS2 ---
Discharge Summary Date of Admission Dec 21, 2024 at 16:44 Date of Discharge: Dec 24, 2024 Admitting Diagnosis Pneumonia, possible secondary to Gram-positive bacteria pneumonia Congestive heart failure with exacerbation Diabetes, type 2 Asthma, exacerbation Labs/Diagnostic Data: Laboratory Results Test 12/23/24 18:41 12/22/24 06:04 12/21/24 10:35 POC Glucose 335 mg/dl (70-106) White Blood Count 9.4 10^3/uL (4.4-10.8) Red Blood Count 4.57 10^6/uL (4.0-5.20) Hemoglobin 13.3 g/dL (12.2-16.2) Hematocrit 40.2 % (36.0-46.0) Mean Corpuscular Volume 87.9 fL (80.0-100.0) Mean Corpuscular Hemoglobin 29.0 pg (28.0-32.0) Mean Corpuscular Hemoglobin Concent 33.0 g/dL (32.0-36.0) Red Cell Distribution Width 14.4 % (11.8-14.3) Platelet Count 234 10^3/uL (140-450) Mean Platelet Volume 8.5 fL (6.9-10.8) Neutrophils (%) (Auto) 86.0 % (37.0-80.0) Lymphocytes (%) (Auto) 12.1 % (10.0-50.0) Monocytes (%) (Auto) 1.5 % (0.0-12.0) Eosinophils (%) (Auto) 0.0 % (0.0-7.0) Basophils (%) (Auto) 0.4 % (0.0-2.0) Neutrophils # (Auto) 8.1 10 ^3/uL (1.6-8.6) Lymphocytes # (Auto) 1.1 10 ^3/uL (0.4-5.4) Monocytes # (Auto) 0.1 10 ^3/uL (0-1.3) Eosinophils # (Auto) 0 10 ^3/uL (0-0.8) Basophils # (Auto) 0 10 ^3/uL (0-0.2) Nucleated Red Blood Cells 0.1 % Sodium Level 141 mmol/L (136-145) Potassium Level 4.2 mmol/L (3.5-5.1) Chloride Level 110 mmol/L (98-107) Carbon Dioxide Level 27 mmol/L (20-31) Anion Gap 4 (5-15) Blood Urea Nitrogen 15 mg/dL (9-23) Creatinine 0.70 mg/dL (0.550-1.02) Glomerular Filtration Rate Calc 97 mL/min (>90) BUN/Creatinine Ratio 21.4 (10.0-20.0) Serum Glucose 180 mg/dL (74-106) Calcium Level 9.3 mg/dL (8.7-10.4) Total Bilirubin 0.3 mg/dL (0.2-1.0) Aspartate Amino Transferase (AST) 12 U/L (13-40) Alanine Aminotransferase (ALT) 15 U/L (7-40) Alkaline Phosphatase 77 U/L (46-116) Total Protein 6.8 g/dL (5.7-8.2) Albumin 4.3 g/dL (3.2-4.8) Urine Color Light-yellow (Yellow) Urine Clarity Clear (Clear) Urine pH 6.0 (5.0-9.0) Urine Specific [place] 1.010 (1.001-1.035) Urine Protein Negative (Negative) Urine Ketones Negative (Negative) Urine Blood Negative /uL (Negative) Urine Nitrite Negative (Negative) Urine Bilirubin Negative (Negative) Urine Urobilinogen Normal mg/dL (Negative) Urine Leukocyte Esterase Negative /uL (Negative) Urine RBC <1 /hpf (0 - 4) Urine Microscopic WBC 1 /HPF (0-5) Urine Squamous Epithelial Cells Few /hpf (<5) Urine Bacteria Mod /hpf (None Seen) Urine Glucose Normal mg/dL (Normal) Other Laboratory Tests 12/22/24 06:04 Brief Hx & Hospital Course: This is a 64 years old female with past medical history diabetes, arthritis, asthma come in for shortness for breath. Patient has shortness for breath associated with cough come weakness, dizziness for three weeks. The patient apparently went to the ER the day before but left and then she still had dizziness and weak so she come back. The patient was admitted. The patient was put on IV antibiotic with Rocephin and Zithromax. The patient was put on Solu- Medrol 60 mg IV Q 8 hours. The patient was put on DuoNeb. Patient doing well today. Less shortness for breath. Cough improved. So I am going to discharge her home. Advised her to follow up with primary care physician 1-2 weeks. Follow up with meal attendant per schedule. Activity as tolerated. Diet low- salt low-cholesterol 2000 ADA calorie diet. Physical exam: HEENT: Normocephalic atraumatic pupils equal react to light and accommodation. Extraocular muscles intact, conjunctiva pink, oropharynx moist, no thrush, no exudate. Lymphatic: No lymphadenopathy Cardiovascular exam: S1, S2 was heard. No murmurs, rubs, gallops Lung: Clear on auscultation bilaterally, no wheeze, rale, rhonchi. GI: Abdominal soft, nondistended, nontenderness, positive bowel sounds. Extremity: No crepitus, cyanosis, edema. Pedal pulses present bilateral. Full range of motion. Skin: Normal turgor, no rash. Psych: Alert, oriented x3. Neurology: No focal deficits, cranial nerve II to XII grossly intact. This medical document was created using an electronic medical record system with [employer] direct computerized dictation system. Although this document has been carefully reviewed, there may still be some phonetic and typographical errors. These areas are purely typographical due to imperfections of the software programs, and do not reflect any compromise in the patient's medical care. Condition at Discharge: Stable Final Diagnosis/Problems List Pneumonia, possible secondary to Gram-positive bacteria pneumonia Congestive heart failure with exacerbation Diabetes, type 2 Asthma, exacerbation Discharge Disposition: Home Discharge Instruct/Medications Diet: Consistent carbohydrate, Cardiac 2g Na,low cholest Activity: No Restrictions, As Tolerated Follow Up/Referral: PCP 1-2 weeks Medications: See medication list Discharge Statement: "Patient was advised to return to the ER or call 911 if any headaches, dizziness, shortness of breath, chest pain, abdominal pain, bleeding, fevers, or worsening of medical condition. Patient was counseled about treatment plan, medications, possible side effects, patientverbalized understanding. All questions were answered to the best of my ability. This discharge took greater then 30 minutes in planning, reviewing documentation, counseling the patient, and discussing with other team members." ASSESSMENT ASSESSMENT Assessment Date of Service: Dec 24, 2024 Billing Provider: ZHANE RODRIGUEZ MD Common Visit Codes: [id number] DISCH DAY >30min ZHANE RODRIGUEZ MD Dec 24, 2024 15:33
[2024-12-24] MEDS ORDERED: AZIT-74 PO (15:34)
[2024-12-24] MEDS ORDERED: METH4PAK PO (15:34)
== END 2024-12-24 16:58 | disposition home or self-care (01) | DRG 194 ==
LOC: ER 09:34 → OVERFLOW 16:44 → WEST WING 23:46
PROVIDERS: ADMIT Internal Medicine; ATTEND Internal Medicine
DX: I50.33 Acute on chronic diastolic (congestive) heart failure (principal); J15.9 Unspecified bacterial pneumonia; J45.901 Unspecified asthma with (acute) exacerbation; E11.65 Type 2 diabetes mellitus with hyperglycemia; M19.09 Primary osteoarthritis, other specified site; F17.210 Nicotine dependence, cigarettes, uncomplicated; J98.4 Other disorders of lung; Z79.82 Long term (current) use of aspirin; Z79.51 Long term (current) use of inhaled steroids; Z79.84 Long term (current) use of oral hypoglycemic drugs; Z79.899 Other long term (current) drug therapy; Z98.891 History of uterine scar from previous surgery
CPT/HCPCS: 36415; 71045; 80048; 80053; 81001; 82962; 85025; 87070; 87205; 93005; 94640; G0378; J1815